=== PATIENT | female | born 1965 | race Caucasian/White ===

== ENCOUNTER 2018-07-19 05:59 | Emergency (ER) | payer OTHER ==
[~2018-07-19] VITALS: Ht 162.6 cm; Wt 62.1 kg
== END 2018-07-19 11:40 | disposition home or self-care (01) ==
LOC: ER 05:59
DX: M54.5 Low back pain (principal)

== ENCOUNTER 2018-12-11 00:18 | Emergency (ER) | payer OTHER ==
[~2018-12-11] VITALS: Ht 162.6 cm; Wt 61.2 kg
[2018-12-11] MEDS ORDERED: ORPHENADRINE C100 MG PO (02:11)
[2018-12-11] MEDS ORDERED: CYCLOBENZAPRINE10 MG PO (02:11)
[2018-12-11] MEDS ORDERED: KETO10TA2 PO (02:11)
== END 2018-12-11 04:02 | disposition home or self-care (01) ==
LOC: ER 00:18
DX: M62.838 Other muscle spasm (principal)

== ENCOUNTER 2019-01-30 13:13 | Emergency (ER) | payer OTHER ==
[~2019-01-30] VITALS: Ht 162.6 cm; Wt 60.8 kg
[~2019-01-30 13:13] MED LIST: CYCLOBENZAPRINE10 MG PO; KETO10TA2 PO; ORPHENADRINE C100 MG PO
[2019-01-30] MEDS ORDERED: DICLOFENAC SODI50 MG (13:51)
== END 2019-01-30 14:49 | disposition home or self-care (01) ==
LOC: ER 13:13
DX: M62.838 Other muscle spasm (principal)

== ENCOUNTER 2019-12-04 22:53 | Emergency (ER) | payer OTHER ==
[~2019-12-04] VITALS: Ht 162.6 cm; Wt 61.2 kg
[~2019-12-04 22:53] MED LIST changes: +DICLOFENAC SODI50 MG
== END 2019-12-05 01:42 | disposition home or self-care (01) ==
LOC: ER 22:53
DX: H81.13 Benign paroxysmal vertigo, bilateral (principal)

== ENCOUNTER 2020-03-07 05:47 | Emergency (ER) | payer OTHER ==
[~2020-03-07] VITALS: Ht 162.6 cm; Wt 61.7 kg
[2020-03-07] MEDS ORDERED: KETO10TA2 PO (08:28)
[2020-03-07] MEDS ORDERED: NORFLEX100MG PO (08:28)
== END 2020-03-07 09:29 | disposition home or self-care (01) ==
LOC: ER 05:47
DX: M54.2 Cervicalgia (principal)

== ENCOUNTER 2020-04-30 19:52 | Emergency (ER) | payer OTHER ==
[~2020-04-30] VITALS: Ht 162.6 cm; Wt 60.8 kg
[~2020-04-30 19:52] MED LIST changes: +NORFLEX100MG PO
[2020-05-01] MEDS ORDERED: KETO10TA2 PO (00:42)
[2020-05-01] MEDS ORDERED: ORPHENADRINE C100 MG PO (00:42)
== END 2020-05-01 00:54 | disposition home or self-care (01) ==
LOC: ER 19:52
DX: M25.512 Pain in left shoulder (principal)

== ENCOUNTER 2020-05-09 19:26 | Emergency (ER) | payer OTHER ==
[~2020-05-09] VITALS: Ht 162.6 cm; Wt 61.2 kg
[2020-05-09] MEDS ORDERED: VITAMIN C WIT1000 MG PO (22:24)
[2020-05-09] MEDS ORDERED: ACETAMINOPHEN650 M2 PO (22:24)
== END 2020-05-09 22:43 | disposition home or self-care (01) ==
LOC: ER 19:26
DX: B34.9 Viral infection, unspecified (principal); A90 Dengue fever [classical dengue]; Z03.818 Encounter for observation for suspected exposure to other biological agents ruled out